=== PATIENT | female | born 1970 | race Hispanic/Latino ===

== ENCOUNTER 2017-07-22 11:29 | Emergency (ER) | payer OTHER ==
[~2017-07-22 11:29] MED LIST: DAPA1TAB4 PO
[2017-07-22 12:56] LABS: APPEARANCE,URINE Cloudy (CLEAR); BILIRUBIN,URINE Negative (NEGATIVE); COLOR,URINE Yellow (YELLOW); GLUCOSE, URINE (UA) >=1000 mg/dL (NEGATIVE); KETONES,URINE Trace mg/dL (NEGATIVE); LEUKOCYTE ESTERASE ,URINE Small (NEGATIVE); NITRATE,URINE Negative (NEGATIVE); OCCULT BLOOD,URINE Negative (NEGATIVE); PH,URINE 5.5 (5.0-8.0); PROTEIN,URINE Negative (NEGATIVE)
[2017-07-22 12:59] LABS: BACTERIA,URINE Rare /HPF (None Seen); SQUAMOUS EPITHELIAL CELL,UR Few /HPF (0-2); WBC,URINE 0-1 /HPF (0-1)
[2017-07-22] MEDS ORDERED: LIDOCAINE 5% TOPICAL PATCH TP ONE (13:02)
[2017-07-22] MEDS ORDERED: KETOROLAC TROMETHAMINE 60 MG/2 ML VIAL ONE (13:02)
[2017-07-22] MEDS ORDERED: HYDROCODONE/ACETAMINOPHEN 5/325 MG TAB ONE ×2 (13:03→13:07)
== END 2017-07-22 15:08 | disposition home or self-care (01) ==
LOC: EDH 11:29
DX: S39.012A Strain of muscle, fascia and tendon of lower back, initial encounter (principal); E11.9 Type 2 diabetes mellitus without complications; I10 Essential (primary) hypertension; Z79.4 Long term (current) use of insulin; X58.XXXA Exposure to other specified factors, initial encounter; Y93.89 Activity, other specified; Y92.89 Other specified places as the place of occurrence of the external cause; Y99.8 Other external cause status
CPT/HCPCS: 72100; 73502; 81001; 81025; 96372; 99285; J1885

== ENCOUNTER 2018-04-28 16:02 | Emergency (ER) | payer SELFPAY ==
[2018-04-28] MEDS ORDERED: CLINDAMYCIN HCL 150 MG CAP ONE (16:50)
== END 2018-04-28 16:58 | disposition home or self-care (01) ==
LOC: EDH 16:02
DX: L03.011 Cellulitis of right finger (principal); E11.9 Type 2 diabetes mellitus without complications; Z79.4 Long term (current) use of insulin; I10 Essential (primary) hypertension; Z88.8 Allergy status to other drugs, medicaments and biological substances

== ENCOUNTER 2019-01-18 11:40 | Emergency (ER) | payer SELFPAY ==
[2019-01-18 13:03] LABS: BASOPHILS % (AUTO) 0.6 % (0.0-5.0); EOSINOPHILS % (AUTO) 2.6 % (0.0-8.0); HEMATOCRIT 38.1 % (36-48); LYMPHOCYTES % (AUTO) 30.8 % (21.0-51.0); MEAN CORPUSCULAR HEMOGLOBIN 29.9 pg (27.0-33.0); MEAN CORPUSCULAR HGB CONC 34.4 g/dL (32.0-36.0); MONOCYTES % (AUTO) 5.2 % (3.0-13.0); NEUTROPHILS % (AUTO) 60.8 % (40.0-77.0); NUCLEATED RED BLOOD CELLS 0.1 % (0.0-0.19); PLATELET COUNT (AUTO) 214 K/uL (130-400); RED BLOOD CELL COUNT(AUTO) 4.38 MIL/uL (4.00-5.50); RED CELL DISTRIBUTION WIDTH 14.6 % (11.0-15.5); WHITE BLOOD COUNT (AUTO) 6.4 K/uL (4.8-10.8)
[2019-01-18 13:15] LABS: CREATININE 0.8 mg/dL (0.5-1.5); POTASSIUM 4.5 mmol/L (3.5-5.1)
[2019-01-18 13:17] LABS: ALBUMIN 3.4 g/dL (3.5-5.0); BILIRUBIN,TOTAL 0.2 mg/dL (0.2-1.0); TOTAL PROTEIN, SERUM 7.2 g/dL (6.0-8.3)
[2019-01-18] MEDS ORDERED: CEPHALEXIN 500 MG CAPSULE ONE (13:25)
[2019-01-18] MEDS ORDERED: ONDANSETRON ODT 4 MG TAB ONE (13:26)
[2019-01-18] MEDS ORDERED: ACETAMINOPHEN EXTRA STRENGTH 500 MG TABLET ONE (13:26)
== END 2019-01-18 14:37 | disposition home or self-care (01) ==
LOC: EDH 11:40
DX: T63.441A Toxic effect of venom of bees, accidental (unintentional), initial encounter (principal); L53.0 Toxic erythema; E11.9 Type 2 diabetes mellitus without complications; I10 Essential (primary) hypertension; Z88.8 Allergy status to other drugs, medicaments and biological substances; Y92.89 Other specified places as the place of occurrence of the external cause
CPT/HCPCS: 36415; 80053; 83690; 85025

== ENCOUNTER 2019-02-21 03:21 | Emergency (ER) | payer SELFPAY ==
[2019-02-21] MEDS ORDERED: SODIUM CHLORIDE 0.9% 1000ML 1,000 ML IV ONE (03:58)
[2019-02-21 04:22] LABS: BASOPHILS % (AUTO) 0.6 % (0.0-5.0); EOSINOPHILS % (AUTO) 5.3 % (0.0-8.0); HEMATOCRIT 36.6 % (36-48); LYMPHOCYTES % (AUTO) 37.7 % (21.0-51.0); MEAN CORPUSCULAR HEMOGLOBIN 29.1 pg (27.0-33.0); MEAN CORPUSCULAR HGB CONC 33.8 g/dL (32.0-36.0); MEAN CORPUSCULAR VOLUME 86.2 fL (79-99); MONOCYTES % (AUTO) 7.1 % (3.0-13.0); NEUTROPHILS % (AUTO) 49.3 % (40.0-77.0); PLATELET COUNT (AUTO) 243 K/uL (130-400); RED BLOOD CELL COUNT(AUTO) 4.24 MIL/uL (4.00-5.50); RED CELL DISTRIBUTION WIDTH 14.1 % (11.0-15.5); WHITE BLOOD COUNT (AUTO) 7.8 K/uL (4.8-10.8)
[2019-02-21 04:25] LABS: APPEARANCE,URINE CLEAR (CLEAR); BILIRUBIN,URINE NEGATIVE (NEGATIVE); COLOR,URINE YELLOW (YELLOW); GLUCOSE, URINE (UA) NEGATIVE (NEGATIVE); KETONES,URINE NEGATIVE (NEGATIVE); LEUKOCYTE ESTERASE ,URINE TRACE (NEGATIVE); NITRATE,URINE NEGATIVE (NEGATIVE); OCCULT BLOOD,URINE TRACE-INTACT (NEGATIVE); PH,URINE 5.5 (5.0-8.0); PROTEIN,URINE 30 mg/dL (NEGATIVE); UROBILINOGEN,URINE 0.2 mg/dL (0.2-1.0)
[2019-02-21 04:30] LABS: HCG,QUAL RESULT NEGATIVE (NEGATIVE)
[2019-02-21 04:33] LABS: BACTERIA,URINE Rare /HPF (None Seen); MUCUS,URINE Moderate LPF (None Seen); RBC,URINE 0-1 /HPF (0-1); SQUAMOUS EPITHELIAL CELL,UR Moderate /HPF (0-2); WBC,URINE None Seen /HPF (0-1)
[2019-02-21] MEDS ORDERED: ONDANSETRON HCL 4 MG/2 ML VIAL ONE (04:38)
[2019-02-21] MEDS ORDERED: BENZONATATE 100 MG CAPSULE PO ONE (04:38)
[2019-02-21] MEDS ORDERED: ACETAMINOPHEN EXTRA STRENGTH 500 MG TABLET ONE (04:39)
[2019-02-21] MEDS ORDERED: IPRATROPIUM/ALBUTEROL SULFATE 3 ML SOLUTION IH ONE (04:42)
[2019-02-21 04:43] LABS: CREATININE 0.7 mg/dL (0.5-1.5); POTASSIUM 4.3 mmol/L (3.5-5.1)
[2019-02-21 04:49] LABS: ALBUMIN 3.4 g/dL (3.5-5.0); BILIRUBIN,TOTAL 0.2 mg/dL (0.2-1.0)
[2019-02-21] MEDS ORDERED: AZITHROMYCIN 250 MG TABLET PO ONE (05:15)
[2019-02-21] MEDS ORDERED: DEXAMETHASONE SOD PHOSPHATE 10MG/ML 1ML VIAL ONE (05:36)
== END 2019-02-21 07:29 | disposition home or self-care (01) ==
LOC: EDH 03:21
DX: J15.7 Pneumonia due to Mycoplasma pneumoniae (principal); J38.3 Other diseases of vocal cords; E11.9 Type 2 diabetes mellitus without complications; I10 Essential (primary) hypertension; Z98.51 Tubal ligation status; Z88.6 Allergy status to analgesic agent; Z79.4 Long term (current) use of insulin
CPT/HCPCS: 36415; 71046; 80053; 81001; 81025; 84484; 85025; 87804 ×2; 93005; 94640; 96361; 96374; 96375; 99285; J1100; J2405; J7030

== ENCOUNTER 2021-08-12 05:30 | Observation (INO) | payer OTHER ==
[2021-08-11 16:51] LABS: BASOPHILS % (AUTO) 0.3 % (0.0-5.0); EOSINOPHILS % (AUTO) 1.4 % (0.0-8.0); HEMATOCRIT 38.1 % (36-48); LYMPHOCYTES % (AUTO) 25.1 % (21.0-51.0); MEAN CORPUSCULAR HEMOGLOBIN 27.5 pg (27.0-33.0); MEAN CORPUSCULAR HGB CONC 31.8 g/dL (32.0-36.0); MEAN CORPUSCULAR VOLUME 86.6 fL (79-99); MONOCYTES % (AUTO) 4.2 % (3.0-13.0); NEUTROPHILS % (AUTO) 68.7 % (40.0-77.0); PLATELET COUNT (AUTO) 220 K/uL (130-400); RED CELL DISTRIBUTION WIDTH 14.1 % (11.0-15.5); WHITE BLOOD COUNT (AUTO) 8.8 K/uL (4.8-10.8)
[2021-08-11 16:57] LABS: APPEARANCE,URINE CLEAR (CLEAR); BILIRUBIN,URINE NEGATIVE (NEGATIVE); COLOR,URINE YELLOW (YELLOW); GLUCOSE, URINE (UA) NEGATIVE (NEGATIVE); KETONES,URINE 15 mg/dL (NEGATIVE); LEUKOCYTE ESTERASE ,URINE TRACE (NEGATIVE); NITRATE,URINE POSITIVE (NEGATIVE); OCCULT BLOOD,URINE LARGE (NEGATIVE); PROTEIN,URINE >=300 mg/dL (NEGATIVE)
[2021-08-11 17:01] LABS: INR 0.93 (0.85-1.15); PROTHROMBIN TIME 9.5 SEC (9.6-11.6)
[2021-08-11 17:02] LABS: PARTIAL THROMBOPLASTIN TIME 25.6 SEC (26.3-35.5)
[2021-08-11 17:07] LABS: RBC,URINE TNTC /HPF (0-1)
[2021-08-11 17:08] LABS: BACTERIA,URINE Many /HPF (None Seen); SQUAMOUS EPITHELIAL CELL,UR Moderate /HPF (0-2)
[2021-08-12] VITALS (18 sets, daily range): BP systolic 133–203; BP diastolic 72–108
[~2021-08-12] VITALS: Ht 152.4 cm; Wt 110.0 kg
[~2021-08-12 05:30] MED LIST changes: +BENZ200C53 PO; -DAPA1TAB4 PO; +DEXTROSE 50%-WATER 50 ML DISP.SYRIN IV PRN; +INSULIN R PO SS1 SQ SCH; +LORA10TA7 PO; +LOSA100T58 PO; +METF-446 PO; +ONDANSETRON 4MG INJ IVP PRN; +ROSU5TAB12 PO; +TRAZ-187 PO
[2021-08-12] MEDS ORDERED: LACTATED RINGERS 1000ML 1,000 ML IV ONE (06:00)
[2021-08-12] MEDS ORDERED: CEFAZOLIN SODIUM 1 GM VIAL ONE ×2 (06:22→09:43)
[2021-08-12] MEDS ORDERED: CEFAZOLIN SODIUM 1 GM VIAL IVP ONE (08:00)
[2021-08-12] MEDS ORDERED: ONDANSETRON 4MG INJ ONE (08:32)
[2021-08-12] MEDS ORDERED: PROPOFOL 10 MG/ML 20ML VIAL IV ONE (08:32)
[2021-08-12] MEDS ORDERED: FENTANYL CITRATE PF 50 MCG/1 ML 5ML AMP IV ONE ×2 (08:33→10:01)
[2021-08-12] MEDS ORDERED: ROCURONIUM 10MG/1ML SYR 10 MG/ML ML ONE ×2 (08:33→10:22)
[2021-08-12] MEDS ORDERED: MIDAZOLAM HCL 1 MG/ML 2ML VIAL ONE (08:33)
[2021-08-12] MEDS ORDERED: CEFAZOLIN SODIUM 3 GM VIAL IV ONE (09:10)
[2021-08-12] MEDS ORDERED: FENTANYL CITRATE PF 50 MCG/1 ML 2ML VIAL ONE (11:08)
[2021-08-12] MEDS ORDERED: NEOSTIGMINE 5MG/5ML SYR IV ONE (11:13)
[2021-08-12] MEDS ORDERED: GLYCOPYRROLATE 1 MG/5 ML SYRINGE ONE (11:13)
[2021-08-12] MEDS ORDERED: MEPERIDINE-PF 25 MG/ML SYG ONE ×2 (11:31→11:44)
[2021-08-12] MEDS ORDERED: LABETALOL 20MG SYG IV ONE (11:37)
[2021-08-12] MEDS ORDERED: ONDANSETRON 4MG INJ IVP PRN (12:30)
[2021-08-12] MEDS ORDERED: IBUPROFEN 600 MG TABLET PO PRN (12:30)
[2021-08-12] MEDS ORDERED: SIMETHICONE 80 MG TAB.CHEW PO PRN (12:30)
[2021-08-12] MEDS ORDERED: BISACODYL 10 MG SUPP.RECT RC PRN (12:30)
[2021-08-12] MEDS ORDERED: DOCUSATE SODIUM 100 MG CAP PO PRN (12:30)
[2021-08-12] MEDS: LACTATED RINGERS 1000ML 1,000 ML IV SCH ×2 (12:56→19:28)
[2021-08-12] MEDS: PROMETHAZINE HCL 25 MG/ML 1ML AMPULE IM PRN ×3 (12:58→20:35)
[2021-08-12] MEDS: MEPERIDINE-PF 75 MG/ML SYG IM PRN ×3 (12:59→20:36)
[2021-08-12] MEDS: ACETAMINOPHEN WITH CODEINE 1 TAB TAB PO PRN (14:47)
[2021-08-12] MEDS: INSULIN HUMULIN R 100 UNIT/ML 3ML SQ SCH ×2 (17:11→20:54)
[2021-08-12] MEDS: DEXTROSE 5%-LACTATED RINGERS 1,000 ML IV SCH (20:16)
[2021-08-13] MEDS: PROMETHAZINE HCL 25 MG/ML 1ML AMPULE IM PRN ×2 (01:27→06:05)
[2021-08-13] MEDS: MEPERIDINE-PF 75 MG/ML SYG IM PRN ×2 (01:29→06:08)
[2021-08-13 03:30] VITALS: BP 136/81
[2021-08-13] MEDS: LACTATED RINGERS 1000ML 1,000 ML IV SCH (03:30)
[2021-08-13] MEDS: INSULIN HUMULIN R 100 UNIT/ML 3ML SQ SCH (06:19)
[2021-08-13 06:43] LABS: HEMATOCRIT 32.3 % (36-48); MEAN CORPUSCULAR HEMOGLOBIN 28.3 pg (27.0-33.0); MEAN CORPUSCULAR HGB CONC 33.4 g/dL (32.0-36.0); MEAN CORPUSCULAR VOLUME 84.6 fL (79-99); RED BLOOD CELL COUNT(AUTO) 3.82 MIL/uL (4.00-5.50); RED CELL DISTRIBUTION WIDTH 14.2 % (11.0-15.5); WHITE BLOOD COUNT (AUTO) 11.4 K/uL (4.8-10.8)
[2021-08-13 07:30] VITALS: BP 141/76
[2021-08-13] MEDS: DEXTROSE 5%-LACTATED RINGERS 1,000 ML IV SCH (08:30)
[2021-08-13] MEDS: ACETAMINOPHEN WITH CODEINE 1 TAB TAB PO PRN (08:44)
[2021-08-13] MEDS ORDERED: SIMETHICONE 80 MG TAB.CHEW PO PRN (09:00)
[2021-08-13] MEDS ORDERED: FERS325 PO (10:13)
[2021-08-13] MEDS ORDERED: SULF1TAB42 PO (10:13)
[2021-08-13] MEDS ORDERED: ACET-2079 PO (10:16)
[2021-08-13 12:00] VITALS: BP 145/85
== END 2021-08-13 13:15 | disposition home or self-care (01) ==
LOC: DAH 05:30 → DAHIP 05:31 → DAH 05:31 → WSH 12:45 → EDSTATUS 14:00
PROVIDERS: ADMIT Obstetrics & Gynecology; ATTEND Obstetrics & Gynecology
DX: N92.1 Excessive and frequent menstruation with irregular cycle (principal); Z20.822 Contact with and (suspected) exposure to COVID-19; N83.201 Unspecified ovarian cyst, right side; R10.2 Pelvic and perineal pain; R68.89 Other general symptoms and signs; E66.01 Morbid (severe) obesity due to excess calories; D25.9 Leiomyoma of uterus, unspecified; N73.6 Female pelvic peritoneal adhesions (postinfective); Z79.899 Other long term (current) drug therapy; Z98.890 Other specified postprocedural states; Z68.42 Body mass index [BMI] 45.0-49.9, adult
CPT/HCPCS: 36415 ×2; 58552; 81001; 82948 ×6; 85025; 85027; 85610; 85730; 86850; 86900; 86901; 87077; 87088; 87186; 87635; 96372 ×2; A4215 ×2; A4221; A4222; A4223; A4344; A4351; A4510; A4600; A4649 ×3; A4663; A6260; C1769 ×2; C9803; G0378 ×28; G0379; J0690 ×3; J1815 ×3; J2175 ×7; J2250; J2405; J2550 ×5; J2704; J2710; J3010 ×3; J3490; J7030; J7120 ×2

== ENCOUNTER 2023-05-25 11:06 | Emergency (ER) | payer BC, OTHER ==
[~2023-05-25] VITALS: Ht 152.4 cm; Wt 98.9 kg
[~2023-05-25 11:06] MED LIST changes: +ACET-2079 PO; -DEXTROSE 50%-WATER 50 ML DISP.SYRIN IV PRN; +FERS325 PO; -INSULIN R PO SS1 SQ SCH; -LOSA100T58 PO; +LOSA100T59 PO; -ONDANSETRON 4MG INJ IVP PRN; +SULF1TAB42 PO
[2023-05-25 11:43] LABS: BASOPHILS # (AUTO) 0.05 K/uL (0.00-0.20); BASOPHILS % (AUTO) 0.8 % (0.0-5.0); EOSINOPHILS # (AUTO) 0.16 K/uL (0.00-0.70); EOSINOPHILS % (AUTO) 2.5 % (0.0-8.0); HEMATOCRIT 39.6 % (36-48); IMMATURE GRANULOCYTE ABSOLUTE 0.03 K/uL (0-1); LYMPHOCYTES # (AUTO) 1.8 K/uL (1.0-4.8); LYMPHOCYTES % (AUTO) 28.7 % (21.0-51.0); MEAN CORPUSCULAR HGB CONC 32.8 g/dL (32.0-36.0); MEAN CORPUSCULAR VOLUME 85.3 fL (79-99); MONOCYTES # (AUTO) 0.4 K/uL (0.1-1.0); NEUTROPHILS # (AUTO) 3.9 K/uL (1.8-7.7); NEUTROPHILS % (AUTO) 61.5 % (40.0-77.0); PLATELET COUNT (AUTO) 246 K/uL (130-400); RED BLOOD CELL COUNT(AUTO) 4.64 MIL/uL (4.00-5.50); RED CELL DISTRIBUTION WIDTH 13.8 % (11.0-15.5); WHITE BLOOD COUNT (AUTO) 6.4 K/uL (4.8-10.8)
[2023-05-25 11:55] LABS: CREATININE 0.7 mg/dL (0.5-1.5); POTASSIUM 4.2 mmol/L (3.5-5.1)
[2023-05-25 11:59] LABS: ALBUMIN 3.5 g/dL (3.5-5.0); BILIRUBIN,TOTAL 0.3 mg/dL (0.2-1.0); TOTAL PROTEIN, SERUM 7.4 g/dL (6.0-8.3)
[2023-05-25 12:10] VITALS: BP 155/87; PULSE 77; RESP 20
[2023-05-25 14:02] LABS: APPEARANCE,URINE CLEAR (CLEAR); BILIRUBIN,URINE NEGATIVE (NEGATIVE); COLOR,URINE LIGHT-YELLOW (YELLOW); GLUCOSE, URINE (UA) NEGATIVE (NEGATIVE); KETONES,URINE NEGATIVE (NEGATIVE); LEUKOCYTE ESTERASE ,URINE NEGATIVE Leu/uL (NEGATIVE); NITRATE,URINE NEGATIVE (NEGATIVE); OCCULT BLOOD,URINE NEGATIVE (NEGATIVE); PH,URINE 5.5 (5.0-8.0); PROTEIN,URINE NEGATIVE (NEGATIVE); UROBILINOGEN,URINE 0.2 mg/dL (0.2-1.0)
[2023-05-25 14:03] LABS: ADD UA MICROSCOPIC NO
[2023-05-25 14:55] LABS: SARS-CoV-2, RNA, NAAT NEGATIVE SARS CoV-2 (NEGATIVE)
[2023-05-25 15:00] LABS: INFLUENZA TYPE A Negative For Type A (NEGATIVE); INFLUENZA TYPE B Negative For Type B (NEGATIVE)
[2023-05-25] MEDS ORDERED: MECL-160 PO (15:33)
[2023-05-25] MEDS: MECLIZINE HCL 25 MG TABLET PO ONE (15:41)
== END 2023-05-25 15:43 | disposition home or self-care (01) ==
LOC: EDH 11:06
DX: H83.03 Labyrinthitis, bilateral (principal); R42 Dizziness and giddiness; I10 Essential (primary) hypertension; E11.9 Type 2 diabetes mellitus without complications; E78.00 Pure hypercholesterolemia, unspecified; Z79.84 Long term (current) use of oral hypoglycemic drugs; Z79.899 Other long term (current) drug therapy; Z90.710 Acquired absence of both cervix and uterus; Z20.822 Contact with and (suspected) exposure to COVID-19
CPT/HCPCS: 36415; 70450; 80053; 81003; 84484; 85025; 87635; 87804; 93005